=== PATIENT | male | born 1995 | race Caucasian/White ===

== ENCOUNTER 2024-11-18 02:39 | Emergency (ER) | payer BC ==
[~2024-11-18] VITALS: Ht 177.8 cm; Wt 72.6 kg
[2024-11-18] MEDS ORDERED: SUMATRIPTAN SUCCINATE 6 MG/0.5 ML VIAL SQ ONE (03:45)
[2024-11-18] MEDS ORDERED: PROCHLORPERAZINE EDISYLATE 10 MG/2 ML VIAL ONE (03:45)
[2024-11-18] MEDS ORDERED: KETOROLAC TROMETHAMINE INJ 30 MG/ML VIAL ONE (03:45)
[2024-11-18] MEDS: KETOROLAC TROMETHAMINE INJ 30 MG/ML VIAL IV ONE (03:56)
[2024-11-18] MEDS: IV NS 0.9% 1,000 ML BAG IV ONE (03:56)
[2024-11-18] MEDS: PROCHLORPERAZINE EDISYLATE 10 MG/2 ML VIAL IVP ONE (03:56)
[2024-11-18] MEDS: SUMATRIPTAN SUCCINATE 6 MG/0.5 ML VIAL SQ ONE (04:01)
[2024-11-18] MEDS ORDERED: KETO10TA2 PO (04:59)
[2024-11-18] MEDS ORDERED: PROC-11 PO (04:59)
[2024-11-18] MEDS ORDERED: SUMA100T PO (04:59)
[2024-11-18 05:23] VITALS: BP 130/83; TEMP 98.1; O2SAT 98
== END 2024-11-18 05:23 | disposition home or self-care (01) ==
LOC: ER 02:47
DX: G43.909 Migraine, unspecified, not intractable, without status migrainosus (principal); I10 Essential (primary) hypertension; R42 Dizziness and giddiness; R53.1 Weakness
CPT/HCPCS: 99284; 96374; 96361; 96375; 96372; J1885; J0780; J3030; J7030